=== PATIENT | male | born 1955 | race Caucasian/White ===

== ENCOUNTER 2019-05-21 15:30 | Inpatient (IN) | payer OTHER ==
[~2019-05-21] VITALS: Ht 170.2 cm; Wt 107.5 kg
[2019-05-21 15:43] VITALS: BP 131/62
--- NOTE | 2019-05-21 15:44 | NUR ---
PT TO ER BED 9
--- NOTE | 2019-05-21 15:53 | NUR ---
63 Y/O MALE PRESENTS WITH INNER THIGH PAIN/PELIVC AREA PAIN FOR WEEKS ASSOCIATED WITH LOWER BILAT EXTREMITY CELLULITIS. 5/10 PAIN. DENIES ANY RECENT ILLNESS. PT WAS BROUGHT IN BY [place] FROM [facility]. PT WAS AT [facility] AND STATES "SOMEONE CALLED 911, I DONT KNOW WHY". AAOX4. RESP EVEN AND UNLABORED. AUDIBLE WHEEZES HEARD. 2L NC SP02 98%. BOWEL SOUNDS NORMOACTIVE IN ALL QUADRANTS. SKIN COOL DRY, INTACT. CAP REFILL <3. PMH: COPD, ASTHMA, HTN NKA
[2019-05-21] MEDS ORDERED: NACL 0.9% 500 ML IV SCH (15:56)
--- NOTE | 2019-05-21 16:23 | NUR ---
XRAY AT BEDSIDE
[2019-05-21] MEDS ORDERED: TRAM50TA1 PO ×2 (16:41→16:43)
[2019-05-21] MEDS ORDERED: IBUP-1842 PO (16:42)
[2019-05-21 16:56] LABS: BASOPHILS % (AUTO) 0.5 % (0.0-2.0); EOSINOPHILS # (AUTO) 0.1 K/uL (0-0.4); EOSINOPHILS % (AUTO) 1.1 % (0.0-4.0); HEMATOCRIT 43.1 % (36-52); HEMOGLOBIN 13.9 g/dL (12.0-18.0); LYMPHOCYTES # (AUTO) 0.5 K/uL (2.0-11.5); LYMPHOCYTES % (AUTO) 6.9 % (20.5-51.1); MEAN CORPUSCULAR HEMOGLOBIN 28 pg (27-31); MEAN CORPUSCULAR HGB CONC 32 g/dL (33-37); MEAN CORPUSCULAR VOLUME 87.7 fL (80-94); MONOCYTES # (AUTO) 0.6 K/uL (0.8-1.0); MONOCYTES % (AUTO) 7.4 % (1.7-9.3); NEUTROPHILS # (AUTO) 6.5 K/uL (1.8-7.7); NEUTROPHILS % (AUTO) 84.1 % (42.2-75.2); PLATELET COUNT (AUTO) 129 K/uL (140-450); RED BLOOD CELL COUNT(AUTO) 4.91 MIL/uL (4.20-6.10); RED CELL DISTRIBUTION WIDTH 16.9 % (11.6-13.7); WHITE BLOOD COUNT (AUTO) 7.7 K/uL (4.8-10.8)
[2019-05-21 17:16] LABS: PROTHROMBIN TIME 11.1 secs (10.8-13.4)
[2019-05-21 17:18] LABS: ALBUMIN 3.4 g/dL (3.4-5.0); ANION GAP 11.4 (8-16); CARBON DIOXIDE 29.6 mmol/L (21-32); CREATININE 1.3 mg/dL (0.6-1.3)
--- NOTE | 2019-05-21 17:26 | NUR ---
ATTEMPTED TO STRAIGHT CATHETERIZE PATIENT IN ATTEMPTS TO OBTAIN URINE SAMPLE. PROCEDURE WAS UNSUCCESSFUL DUE TO PATIENT TENSING UP AND JOLTING IN PAIN. PT YELLED OUT TO STOP ADVANCEMENT OF CATHETER. CATHERIZATION WAS HALTED MID PROCEDURE AND CATH WAS WITHDRAWN. PT LEFT WITH URINAL AT BEDSIDE.
[2019-05-21] MEDS ORDERED: VANCOMYCIN 1,000 MG in DEXTROSE 5% 250 ML IV ONE (17:30)
[2019-05-21] MEDS ORDERED: ASPIRIN 81 MG TAB.CHEW PO ONE (17:35)
[2019-05-21] MEDS ORDERED: VANCOMYCIN 1,000 MG VIAL ONE (17:36)
[2019-05-21] MEDS ORDERED: MORPHINE SULFATE 2 MG/ML SYR IVP ONE (17:45)
[2019-05-21] MEDS ORDERED: VANCOMYCIN PER PHARMACY MC PRN (18:20)
[2019-05-21] MEDS ORDERED: HYDROcodone/APAP 5/325 MG 1 TAB TAB PO PRN (18:20)
[2019-05-21] MEDS ORDERED: traMADol 50 MG TAB PO PRN (18:20)
[2019-05-21] MEDS ORDERED: ACETAMINOPHEN 325 MG TAB PO PRN (18:20)
[2019-05-21] MEDS ORDERED: ALBUTEROL 0.083% 2.5 MG/3 ML NEBU INH PRN (18:20)
[2019-05-21] MEDS ORDERED: ONDANSETRON 4 MG/2 ML VIAL IVP PRN (18:20)
[2019-05-21] MEDS ORDERED: MORPHINE SULFATE 4 MG/ML SYR IVP PRN (18:20)
--- NOTE | 2019-05-21 18:21 | NUR ---
PT STILL WILL NOT GIVE URINE. PT REFUSING STRAIGHT CATH
--- NOTE | 2019-05-21 18:24 | NUR ---
RED AND DRY, SCALY SKIN FROM KNEES DOWN, NO OPEN WOUNDS IN THIS AREA
--- NOTE | 2019-05-21 18:24 | NUR ---
NO WOUNDS UPON VISUAL EXAMINATION
--- NOTE | 2019-05-21 18:49 | NUR ---
NADR, PT SLEEPING
[2019-05-21 19:00] VITALS: BP 126/86
--- NOTE | 2019-05-21 19:11 | NUR ---
[facility]. Admited to TELE. Will go to room 126B. Belongings list completed. Report to LETY RAMOS.
[2019-05-21] MEDS: NACL 0.9% 1,000 ML IV SCH (19:48)
--- NOTE | 2019-05-21 20:30 | NUR ---
PT SEEN AND ASSESS AT THIS TIME. BREATH SOUNDS EXP WHEEZING. HHN PRN ALBUTEROL TX GIVEN ORDERED, AND PT TOLERATED WELL WITH NO ADVERSE REACTION. CLEAR BREATH SOUNDS AFTER TX. AR DOCTOR SAID HE WILL GIVE NEW ORDER (XOPENEX AND ATROVENT) TO NURSE. FOUND PT ON 4L NC WIT SPO2 OF 99%. O2 TITRATED TO ROOM AIR WITH SPO2 OF 93-94%. RN AT BEDSIDE. WILL CONTINUE TO MONITOR PT.
--- NOTE | 2019-05-21 20:39 | NUR ---
CALLED DR. 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
--- NOTE | 2019-05-21 21:00 | NUR ---
PT SAID HE FEELS MUCH BETTER, RR- 20, NO SOB NOTED. CHECKED BY RT EARLIER LEFT W/ O2 SAT OF 93% AT 2LPM O2 VIA NASAL CANNULA.
[2019-05-21] MEDS ORDERED: LEVALBUTEROL 1.25 MG/0.5 ML NEBU INH PRN (23:10)
[2019-05-22] VITALS: BP 133/76
--- NOTE | 2019-05-22 | NUR ---
PT SLEEPING, WILL TAKE A PHOTP LATER; PT NO DISTRESS, NO PAIN COMPLAINTS AT THIS TIME
--- NOTE | 2019-05-22 01:02 | NUR ---
PHOTO TAKEN ON THE LOWER EXTREMITY, BILATERAL CELLULITIS. WOUND CLOSED
--- NOTE | 2019-05-22 03:51 | NUR ---
PT HAS DIFFICULTY OF ADL'S' SOB NOTED WHEN PT EXERTS EFFORT, WILL CONTINUE TO MONITOR
[2019-05-22 04:00] VITALS: BP 111/57
--- NOTE | 2019-05-22 05:30 | NUR ---
INFORMED LATTER-DAY THAT PT NEEDS A BREATHING TX
--- NOTE | 2019-05-22 07:15 | NUR ---
RT CAME TO GIVE BREATHING TX FOR WHEEZING
--- NOTE | 2019-05-22 07:19 | NUR ---
PT AWAKE ALERT ORIENTED X 4, BEDREST. PT NO RESPIRATORY DISTRESS NOTED; NO PAIN. ENDORSED TO AM SHIFT FOR CONTINUITY OF CARE,
--- NOTE | 2019-05-22 07:20 | NUR ---
RECEIVED REPORT FROM NIGHT NURSE FOR CONTINUITY OF CARE, PT IS STABLE, PT RECEIVING A BREATHING TREATMENT, RT IN THE ROOM WITH PT, PT ON 2L NC, PT HAS A RIGHT AC 20G INFUSING NS AT 75ML/H, INTRODUCE SELF, UPDATED WHITEBOARD, CALL LIGHT WITHIN REACH, ALL NEEDS MET AT THIS TIME.
[2019-05-22 07:21] LABS: BASOPHILS % (AUTO) 0.9 % (0.0-2.0); EOSINOPHILS # (AUTO) 0.3 K/uL (0-0.4); EOSINOPHILS % (AUTO) 6.1 % (0.0-4.0); HEMATOCRIT 40.2 % (36-52); HEMOGLOBIN 12.8 g/dL (12.0-18.0); LYMPHOCYTES # (AUTO) 0.7 K/uL (2.0-11.5); LYMPHOCYTES % (AUTO) 13.4 % (20.5-51.1); MEAN CORPUSCULAR HEMOGLOBIN 28 pg (27-31); MEAN CORPUSCULAR HGB CONC 32 g/dL (33-37); MEAN CORPUSCULAR VOLUME 88.5 fL (80-94); MONOCYTES # (AUTO) 0.6 K/uL (0.8-1.0); NEUTROPHILS # (AUTO) 3.6 K/uL (1.8-7.7); NEUTROPHILS % (AUTO) 67.6 % (42.2-75.2); PLATELET COUNT (AUTO) 116 K/uL (140-450); RED BLOOD CELL COUNT(AUTO) 4.54 MIL/uL (4.20-6.10); RED CELL DISTRIBUTION WIDTH 16.5 % (11.6-13.7); WHITE BLOOD COUNT (AUTO) 5.3 K/uL (4.8-10.8)
[2019-05-22] MEDS: IPRATROPIUM 0.02% 0.5 MG/2.5 ML NEBU INH PRN (07:21)
[2019-05-22 07:34] LABS: ANION GAP 11.9 (8-16); CARBON DIOXIDE 27.3 mmol/L (21-32); POTASSIUM 4.2 mmol/L (3.5-5.1)
[2019-05-22] MEDS: NACL 0.9% 1,000 ML IV SCH ×2 (07:38→20:59)
[2019-05-22 08:00] VITALS: BP 114/78
[2019-05-22] MEDS: ASPIRIN 81 MG TAB.CHEW PO SCH (08:16)
--- NOTE | 2019-05-22 08:21 | NUR ---
ADMINISTERED ORDERED MEDICATION, GAVE TYLENOL FOR TEMPERATURE OF 100.0, PT EDUCATION GIVEN, PT VERBALIZED UNDERSTANDING, PT IS STABLE, CALL LIGHT WITHIN REACH.
[2019-05-22 08:36] LABS: MAGNESIUM 1.8 mg/dL (1.8-2.4); PHOSPHORUS 3.4 mg/dL (2.5-4.9)
--- NOTE | 2019-05-22 08:38 | NUR ---
PATIENT HAS BEEN SCREENED AND CATEGORIZED MODERATE NUTRITION RISK. PATIENT WILL BE SEEN WITHIN 3-5 DAYS OF ADMISSION. 05/24/19 05/26/[address]
--- NOTE | 2019-05-22 09:25 | NUR ---
CALLED DR CARREON AT [facility] AND LEFT A CALL BACK MESSAGE. DR MOSER CALLED BACK OF 09, GAVE CRITICAL VALUE OF TROPONIN 0.777, AND PREVIOUS TROPONIN 0.060, DR MOSER SAID WE WILL CONTINUE TO MONITOR PATIENT AND NO ORDERED RECEIVED AT THE MOMENT.
[2019-05-22] MEDS: VANCOMYCIN 1,000 MG in DEXTROSE 5% 250 ML IV SCH ×2 (10:39→22:44)
--- NOTE | 2019-05-22 10:40 | NUR ---
ADMINISTERED ORDERED MEDICATION, EDUCATION GIVEN, PT VERBALIZED UNDERSTANDING, PT STABLE, CALL LIGHT WITHIN REACH.
--- NOTE | 2019-05-22 11:11 | NUR ---
PT ASLEEP IN BED, PT SNORING, PT IS STABLE, NO SIGNS OF DISTRESS NOTED, RESPIRATIONS ARE EVEN AND UNLABORED ON 2L NC O2, CALL LIGHT WITHIN REACH.
[2019-05-22 12:00] VITALS: BP 92/62
[2019-05-22] MEDS ORDERED: LEVALBUTEROL 1.25 MG/0.5 ML NEBU INH SCH (12:25)
[2019-05-22] MEDS: IPRATROPIUM 0.02% 0.5 MG/2.5 ML NEBU INH SCH ×2 (12:57→20:10)
[2019-05-22] MEDS: LEVALBUTEROL 1.25 MG/0.5 ML NEBU INH SCH ×2 (12:58→20:10)
[2019-05-22] MEDS ORDERED: BUDESONIDE 0.5 MG/2 ML NEBU INH SCH (13:00)
--- NOTE | 2019-05-22 13:50 | NUR ---
PT RESTING IN BED, NO SIGN OF DISTRESS NOTED, CALL LIGHT WITHIN REACH.
--- NOTE | 2019-05-22 14:40 | NUR ---
DR MOSER CALLED BACK REGARDING PT ELEVATED TROPONIN OF 1.021 TRENDING UP, DR ORDERED EKG AND TROPONIN CHECK IN THE AM. WILL INPUT THE ORDER AND HAVE IT CARRIED OUT.
--- NOTE | 2019-05-22 15:35 | NUR ---
PT ASLEEP IN BED, PT IS STABLE, NO SIGNS OF DISTRESS NOTED, RESPIRATIONS ARE EVEN AND UNLABORED ON 2L O2 NASAL CANNULA, CALL LIGHT WITHIN REACH.
[2019-05-22 16:00] VITALS: BP 104/72
[2019-05-22] MEDS ORDERED: HEPARIN PER PHARMACY MC PRN (16:45)
[2019-05-22] MEDS ORDERED: hePARIN / DEXT 5% PREMIX 250 ML IV SCH (16:45)
[2019-05-22] MEDS ORDERED: DILTIAZEM 25 MG/5 ML VIAL IVP SCH (16:50)
[2019-05-22] MEDS ORDERED: DILTIAZEM 25 MG/5 ML VIAL IVP ONE (16:56)
--- NOTE | 2019-05-22 17:13 | NUR ---
CARDIZEM 10MG/2ML GIVEN PER Margarette VERNON. Addendum: 05/22/19 at 1755 by Sara Pena RN IV PUSH
[2019-05-22] MEDS ORDERED: VANCOMYCIN HCL 1,250 MG in NACL 0.9% 250 ML IV SCH (18:00)
--- NOTE | 2019-05-22 18:10 | NUR ---
CALLED DR. Margarette PAUL AND GAVE RE-ASSESSED PT BP:113/77, HR86, AFTER CARDIZEM. DR. PAUL ORDERED CARDIZEM 30MG, PO,Q8H HOLD HR< 70, OR SYSTOLIC < 100. DR. PAUL WANTS PT ON HEPARIN DRIP, TROPONIN AND EKG IN THE AM.
--- NOTE | 2019-05-22 19:10 | NUR ---
GAVE REPORT TO NIGHT NURSE FOR CONTINUITY OF CARE, PT IS STABLE.
--- NOTE | 2019-05-22 19:15 | NUR ---
RECEIVED PT IN STABLE CONDITION FROM AM NURSE. AWAKE,ALERT AND ORIENTED X4. ON TELE MONITOR -A FLUTTER. WITH IVF INFUSING WELL ON THE RT AC G#20. CLEAR AND PATENT. BLE WITH CELLULITIS. 1+ NON PITTING EDEMA. PLAN OF CARE DISCUSSED WITH PT. VERBALIZED UNDERSTANDING. FREQ ROUNDS NEEDED. SIDE RAILS UP X2. BED ON LOW POSITION. CALL LIGHT AND URINAL WITHIN EASY REACH. WILL CONTINUE TO MONITOR.
[2019-05-22 20:01] VITALS: BP 123/74
[2019-05-22] MEDS: BUDESONIDE 0.5 MG/2 ML NEBU INH SCH (20:11)
--- NOTE | 2019-05-22 20:17 | NUR ---
RECEIVED REPORT FROM AM SHIFT. PATIENT APPEARS TO BE IN NO APPARENT RESPIRATORY DISTRESS AT THIS TIME: RR 18, HR 70, AND SPO2 92% ON 1L NASAL CANNULA. UPPER LOBES BREATH SOUNDS: WHEEZING BILATERALLY. LOWER BASES BREATH SOUNDS: WHEEZING BILATERALLY. HHN TX GIVEN ORDERED AND PATIENT TOLERATED WELL WITH NO ADVERSE REACTION. PT WAS ALSO INFORMED TO CALL RN OR COMPOSING MACHINE OPERATOR WHEN EXPERIENCING SOB FOR PRN TX. WILL CONTINUE TO MONITOR PT.
--- NOTE | 2019-05-22 20:47 | NUR ---
TROPONIN ELEVATED AND EKG ABNORMAL. HEPARIN DRIP STARTED AFTER THE INITIAL BOLUS GIVEN IVP WITNESSED BY RACHEL CHAVARRIA CHARGE. PTT ORDERED AT 0247 AM.
[2019-05-22] MEDS: hePARIN / DEXT 5% PREMIX 250 ML IV SCH (20:49)
[2019-05-22] MEDS: DILTIAZEM 30 MG TAB PO SCH (21:03)
--- NOTE | 2019-05-22 22:30 | NUR ---
MADE ROUNDS. PT ASLEEP. NO S/S OF ANY DISTRESS NOR DISCOMFORT NOTED.
[2019-05-23] VITALS: BP 136/46
[2019-05-23] MEDS: NACL 0.9% 1,000 ML IV SCH (00:28)
--- NOTE | 2019-05-23 00:30 | NUR ---
PT IS ASLEEP. NO S/S OF ANY PAIN NOR DISCOMFORT NOTED.
[2019-05-23] MEDS: IPRATROPIUM 0.02% 0.5 MG/2.5 ML NEBU INH SCH ×4 (00:56→19:20)
[2019-05-23] MEDS: LEVALBUTEROL 1.25 MG/0.5 ML NEBU INH SCH ×4 (00:56→19:20)
--- NOTE | 2019-05-23 02:46 | NUR ---
BLOOD WAS DRAWN FOR PTT. WILL FOLLOW UP RESULT.
[2019-05-23 04:16] VITALS: BP 131/69
[2019-05-23] MEDS: hePARIN / DEXT 5% PREMIX 250 ML IV SCH ×4 (04:45→18:50)
--- NOTE | 2019-05-23 04:45 | NUR ---
OBTAINED RESULTS FOR PTT: 27.3 MADE CHANGES PER HEPARIN DRIP PROTOCOL. ADMINISTERED BOLUS 4000UNITS AND INCREASED DRIP BY 270UNITS = TOTAL UNITS 1070 OR 10.7ML/HR. PT TOLERATED WELL. SAFETY MEASURES IN PLACE. BED IN LOW POSITION CALL LIGHT WITHIN REACH WILL CONTINUE TO MONITOR
[2019-05-23] MEDS: DILTIAZEM 30 MG TAB PO SCH ×3 (04:54→20:45)
[2019-05-23 06:05] LABS: BASOPHILS % (AUTO) 0.7 % (0.0-2.0); EOSINOPHILS # (AUTO) 0.2 K/uL (0-0.4); EOSINOPHILS % (AUTO) 4.9 % (0.0-4.0); HEMATOCRIT 39.6 % (36-52); HEMOGLOBIN 12.8 g/dL (12.0-18.0); LYMPHOCYTES # (AUTO) 0.7 K/uL (2.0-11.5); MEAN CORPUSCULAR HEMOGLOBIN 29 pg (27-31); MEAN CORPUSCULAR HGB CONC 32 g/dL (33-37); MEAN CORPUSCULAR VOLUME 88.6 fL (80-94); MONOCYTES # (AUTO) 0.5 K/uL (0.8-1.0); MONOCYTES % (AUTO) 10.2 % (1.7-9.3); NEUTROPHILS # (AUTO) 3.5 K/uL (1.8-7.7); NEUTROPHILS % (AUTO) 70.2 % (42.2-75.2); PLATELET COUNT (AUTO) 99 K/uL (140-450); RED BLOOD CELL COUNT(AUTO) 4.46 MIL/uL (4.20-6.10); RED CELL DISTRIBUTION WIDTH 16.6 % (11.6-13.7)
[2019-05-23 06:26] LABS: ANION GAP 10.1 (8-16); CREATININE 1.1 mg/dL (0.6-1.3); POTASSIUM 4.1 mmol/L (3.5-5.1)
[2019-05-23 06:38] LABS: MAGNESIUM 1.8 mg/dL (1.8-2.4); PHOSPHORUS 2.7 mg/dL (2.5-4.9)
--- NOTE | 2019-05-23 07:14 | NUR ---
RECEIVED REPORT FROM NIGHT NURSE, PT IS STABLE, INTRODUCE SELF, PT HAS RAC 20G INFUSING HEPARIN DRIP AT 10.7ML/H, RH 22G INFUSING NS AT 75 ML/H, PT ON 2L PR 02, UPDATED WHITE BOARD, SAFETY MEASURES IN PLACE, CALL LIGHT WITHIN REACH.
--- NOTE | 2019-05-23 07:15 | NUR ---
ENDORSED PATIENT TO DAYSHIFT NURSE FOR CONTINUITY OF CARE. PT IN STABLE CONDITION.
[2019-05-23] MEDS: BUDESONIDE 0.5 MG/2 ML NEBU INH SCH ×2 (07:18→19:20)
[2019-05-23 08:00] VITALS: BP 96/66
[2019-05-23] MEDS: ASPIRIN 81 MG TAB.CHEW PO SCH (08:20)
--- NOTE | 2019-05-23 08:27 | NUR ---
ADMINISTERED ORDERED MEDICATION, PT EDUCTION GIVEN, PT VERBALIZED UNDERSTANDING, PT IS STABLE, CALL LIGHT WITHIN REACH.
--- NOTE | 2019-05-23 08:55 | NUR ---
DISCHARGE PLANNING: THIS IS A 63 Y/O MALE PATIENT FROM HOME, WHO CAME IN DUE TO LOWER EXTREMITY PAIN AND SWELLING. PAST MEDICAL HISTORY INCLUDE COPD AND HTN. INITIAL DIAGNOSIS OF CELLULITIS LLE AND ABNORMAL EKG. CURRENT LABS INCLUDE WBC 5.0, H/H 12.8/39.6, NA/K 144/4.1, BUN/CREA 20/1.1, TORP 0.545. ON HEPARIN DRIP. ON ROCEPHIN, VANCO AND BREATHING TREATMENT. CARDIO CONSULT IN PLACE. DC PLAN BACK TO HOME ONCE STABLE. Addendum: 05/24/19 at 1602 by Sarah Mohan CM DC PLANNING: SEEN BY DR HERNANDEZ WHEEZING ON EXAM SOB NOTED , O2 2L/NC .ORDERED IV LASIX X1, SOLU MEDROL VANCOMYCIN IV AND BREATHING TREATMENT. SEEN BY DR HUMBERTO Causey WOOD LATHER CONTINUE HEPARIN DRIP, TROPONIN TRENDING DOWN. PT IS HOMELESS, NOTIFIED [facility] SPOKE WITH DHAVAL FUNEZ IF PT AGREES TO GO TO SNF FOR PT AND TO CONTINUE IV ABX. CM TO FOLLOW Addendum: 05/25/19 at 1117 by Verenice Sheppard CM ON BREATHING TREATMENT. WAS GIVEN LASIX IV ONCE. STILL ON ROCEPHIN, VANCOMYCIN AND SOLU MEDROL. STILL ON HEPARIN DRIP, TROPS DOWN TRENDING 0.401 FROM 0545 YESTERDAY AND PTT 40.6. CARDIO CONSULT IN PLACE. DC PLAN PENDING ON PATIENT'S RESPONSE TO TREATMENT.
[2019-05-23] MEDS: VANCOMYCIN 1,250 MG in DEXTROSE 5% 250 ML IV SCH ×2 (10:37→21:06)
--- NOTE | 2019-05-23 10:37 | NUR ---
ADMINISTERED ORDERED MEDICATION, PT EDUCATION GIVEN, PT VERBALIZED UNDERSTANDING, PT IS STABLE, CALL LIGHT WITHIN REACH
--- NOTE | 2019-05-23 11:14 | NUR ---
PT IN ROOM HAVING AN ECHO DONE, PT IS STABLE, CALL LIGHT WITHIN REACH.
[2019-05-23 12:00] VITALS: BP 136/72
--- NOTE | 2019-05-23 13:55 | NUR ---
ADMINISTERED ORDERED MEDICATION, EDUCATION GIVEN, PT VERBALIZED UNDERSTANDING, PT UPSET AND REQUESTING ANXIETY MEDICATION TO CALM DOWN, WILL CALL MD FOR AN ORDER, PT IS STABLE, CALL LIGHT WITHIN REACH.
--- NOTE | 2019-05-23 14:09 | NUR ---
PT AGITATED AND REQUEST MEDICATION FOR ANXIETY, CALLED DR ADITI HERNANDEZ AND RECEIVED TORB FOR ATIVAN FOR ANXIETY, ATIVAN 0.50MG, PO Q6H PRN, WILL INPUT ORDERED AND ADMINISTERED
[2019-05-23] MEDS: LORazepam 0.5 MG TAB PO PRN ×2 (14:19→20:45)
--- NOTE | 2019-05-23 14:20 | NUR ---
ADMINISTERED ATIVAN FOR ANXIETY, EDUCATION GIVEN, PT VERBALIZED UNDERSTANDING, PT IS STABLE, CALL LIGHT WITHIN REACH.
--- NOTE | 2019-05-23 15:38 | NUR ---
PT ASLEEP IN HIS ROOM, PT IS STABLE, NO SIGNS OF DISTRESS NOTED, CALL LIGHT WITHIN REACH.
[2019-05-23 16:00] VITALS: BP 105/58
--- NOTE | 2019-05-23 19:14 | NUR ---
GAVE REPORT TO NIGHT NURSE FOR CONTINUITY OF CARE, PT IS STABLE.
--- NOTE | 2019-05-23 19:15 | NUR ---
RECEIVED PATIENT IN STABLE CONDITION FROM AM SHIFT NURSE FOR CONTINUITY OF CARE. RESPIRATIONS EVEN, UNLABORED. IV SITE NOTED TO LEFT AC 20G, INFUSING HEPARIN. SALINE LOCK TO LEFT HAND 22G PATENT/INTACT. NO C/O PAIN. NO S/SX ACUTE DISTRESS. CALL LIGHT WITHIN REACH. WILL CONTINUE TO MONITOR.
[2019-05-23 19:20] LABS: APPEARANCE,URINE CLEAR (CLEAR); BILIRUBIN,URINE NEGATIVE (NEGATIVE); BLOOD, URINE NEGATIVE (NEGATIVE); COLOR,URINE YELLOW (YELLOW); LEUKOCYTE ESTERASE ,URINE NEGATIVE (NEGATIVE); NITRITE, URINE NEGATIVE (NEGATIVE); PH,URINE 6.5 (5.0-9.0); UGLUCOSE NEGATIVE (NEGATIVE)
--- NOTE | 2019-05-23 19:30 | NUR ---
RECEIVED REPORT FROM AM SHIFT. PATIENT APPEARS TO BE IN NO APPARENT RESPIRATORY DISTRESS AT THIS TIME: RR 20, HR 118, AND SPO2 94% ON ROOM AIR. PT REFUSED HHN TX STATED HE WANT TO BE LEFT ALONE. INDICATION FOR HHN WAS EXPLAINED TO PATIENT. PT WAS ALSO INFORMED TO CALL RN OR HOSPICE PHYSICIAN WHEN EXPERIENCING SOB FOR PRN TX. WILL CONTINUE TO MONITOR PT.
[2019-05-23 20:00] VITALS: BP 121/81
[2019-05-23] MEDS: ATORVASTATIN 20 MG TAB PO SCH (20:45)
--- NOTE | 2019-05-23 20:45 | NUR ---
PATIENT C/O ANXIETY. MEDICATED ORDERED. CALL LIGHT WITHIN REACH. WILL CONTINUE TO MONITOR.
--- NOTE | 2019-05-23 21:00 | NUR ---
PATIENT ASLEEP AND IN STABLE CONDITION. NO C/O PAIN. NO S/SX ACUTE DISTRESS. CALL LIGHT WITHIN REACH. WILL CONTINUE TO MONITOR.
--- NOTE | 2019-05-23 21:45 | NUR ---
REASSESSED ANXIETY LEVEL, PATIENT STILL ASLEEP AND IN STABLE CONDITION. CALL LIGHT WITHIN REACH. WILL CONTINUE TO MONITOR.
--- NOTE | 2019-05-23 23:05 | NUR ---
PATIENT ASLEEP AND IN STABLE CONDITION. NO C/O PAIN. NO S/SX ACUTE DISTRESS. CALL LIGHT WITHIN REACH. WILL CONTINUE TO MONITOR.
[2019-05-24] VITALS: BP 124/82
[2019-05-24] MEDS: IPRATROPIUM 0.02% 0.5 MG/2.5 ML NEBU INH SCH ×4 (00:20→20:32)
[2019-05-24] MEDS: LEVALBUTEROL 1.25 MG/0.5 ML NEBU INH SCH ×4 (00:20→20:33)
[2019-05-24] MEDS: hePARIN / DEXT 5% PREMIX 250 ML IV SCH ×3 (02:00→23:18)
[2019-05-24] MEDS: IPRATROPIUM 0.02% 0.5 MG/2.5 ML NEBU INH PRN (02:21)
--- NOTE | 2019-05-24 02:27 | NUR ---
RECEIVED A CALL FOR SOB. MINE ENGINEERING SUPERINTENDENT AT BEDSIDE, PATIENT CONFIRMED SOB AND AUSCULTATION SHOWS BILATERAL WHEEZING BREATH SOUNDS. PRN HHN TX INDICATED AT THIS TIME. TX WAS GIVEN ORDERED AND PT TOLERATED TX WELL WITH NO ADVERSE REACTION. WILL CONTINUE TO MONITOR.
--- NOTE | 2019-05-24 02:40 | NUR ---
PATIENT RECEIVED BREATHING TREATMENT AND CURRENTLY ASLEEP. IN STABLE CONDITION. CALL LIGHT WITHIN REACH. WILL CONTINUE TO MONITOR.
[2019-05-24] MEDS: LORazepam 0.5 MG TAB PO PRN ×3 (03:11→20:11)
--- NOTE | 2019-05-24 03:11 | NUR ---
PATIENT C/O ANXIETY. MEDICATED ORDERED. CALL LIGHT WITHIN REACH. WILL CONTINUE TO MONITOR.
[2019-05-24 04:00] VITALS: BP 122/66
--- NOTE | 2019-05-24 04:11 | NUR ---
PATIENT RESTING COMFORTABLY IN BED. NO C/O PAIN. NO VERBALIZATION OF ANXIETY. NO S/SX ACUTE DISTRESS. CALL LIGHT WITHIN REACH. WILL CONTINUE TO MONITOR.
[2019-05-24] MEDS: DILTIAZEM 30 MG TAB PO SCH ×3 (05:00→20:10)
--- NOTE | 2019-05-24 06:01 | NUR ---
PATIENT CONTINUES IN STABLE CONDITION. NO C/O PAIN. NO S/SX ACUTE DISTRESS. CALL LIGHT WITHIN REACH. WILL CONTINUE TO MONITOR.
[2019-05-24] MEDS: BUDESONIDE 0.5 MG/2 ML NEBU INH SCH ×2 (06:45→20:33)
--- NOTE | 2019-05-24 07:27 | NUR ---
ENDORSED PATIENT IN STABLE CONDITION TO AM SHIFT NURSE FOR CONTINUITY OF CARE.
--- NOTE | 2019-05-24 07:31 | NUR ---
RECEIVED REPORT FROM SCROLL MACHINE OPERATOR RN FOR CONTINUITY OF CARE. PT IS AAOX4, COOPERATIVE BUT BECOMES AGITATED EASILY. PT ON 2L O2 VIA NC. SATING 95%. PT HAS BLE CELLULITIS. OPEN TO AIR. PT ON CARDIAC DIET. URINAL AT BEDSIDE FOR VOIDING. PT ABLE TO AMBULATE BUT WITH ASSISTANCE DUE TO SWELLING IN BLE. DISCUSSED POC WITH PT NAD PT VERBALIZED UNDERSTANDING. SAFETY MEASURES IN PLACE. BOARD UPDATED. BED ALARM ON, CALL LIGHT WITHIN REACH, BED IN LOW POSITION. WILL ROUND FREQUENTLY THROUGHOUT THE SHIFT.
[2019-05-24 08:00] VITALS: BP 110/82
[2019-05-24 08:31] LABS: BASOPHILS # (AUTO) 0.1 K/uL (0.00-0.22); BASOPHILS % (AUTO) 1.1 % (0.0-2.0); EOSINOPHILS # (AUTO) 0.2 K/uL (0-0.4); EOSINOPHILS % (AUTO) 4.6 % (0.0-4.0); HEMATOCRIT 40.5 % (36-52); LYMPHOCYTES # (AUTO) 0.8 K/uL (2.0-11.5); LYMPHOCYTES % (AUTO) 14.8 % (20.5-51.1); MEAN CORPUSCULAR HEMOGLOBIN 28 pg (27-31); MEAN CORPUSCULAR HGB CONC 32 g/dL (33-37); MEAN CORPUSCULAR VOLUME 87.3 fL (80-94); MONOCYTES # (AUTO) 0.5 K/uL (0.8-1.0); MONOCYTES % (AUTO) 10.6 % (1.7-9.3); NEUTROPHILS # (AUTO) 3.5 K/uL (1.8-7.7); NEUTROPHILS % (AUTO) 68.9 % (42.2-75.2); PLATELET COUNT (AUTO) 102 K/uL (140-450); RED BLOOD CELL COUNT(AUTO) 4.64 MIL/uL (4.20-6.10); RED CELL DISTRIBUTION WIDTH 15.8 % (11.6-13.7); WHITE BLOOD COUNT (AUTO) 5.1 K/uL (4.8-10.8)
[2019-05-24 08:38] LABS: CARBON DIOXIDE 29.9 mmol/L (21-32); CREATININE 0.9 mg/dL (0.6-1.3); POTASSIUM 3.9 mmol/L (3.5-5.1)
[2019-05-24 08:44] LABS: MAGNESIUM 1.6 mg/dL (1.8-2.4); PHOSPHORUS 2.7 mg/dL (2.5-4.9)
--- NOTE | 2019-05-24 09:41 | NUR ---
ADMINISTERED MORNING MEDS TO PT. PT TOLERATED WELL. ALL NEEDS MET.
[2019-05-24] MEDS: METOPROLOL SUCCINATE 50 MG TABER PO SCH (09:57)
[2019-05-24] MEDS: ASPIRIN 81 MG TAB.CHEW PO SCH (09:57)
[2019-05-24] MEDS: VANCOMYCIN 1,250 MG in DEXTROSE 5% 250 ML IV SCH ×2 (10:00→21:01)
--- NOTE | 2019-05-24 11:18 | NUR ---
PT RESTING IN BED WATCHING TV. ALL NEEDS MET. WILL CONTINUE TO ROUND ON PT.
--- NOTE | 2019-05-24 11:38 | NUR ---
REMINDED OF PT A-FLUTTER. ASKED MD IF HE WANTED TO MAKE ANY CHANGES TO MEDS OR ADD ANY ORDERS. PER HE SAID HE WOULD TAKE A LOOK. WILL FOLLOW MD ORDERS.
[2019-05-24 12:00] VITALS: BP 122/69
[2019-05-24] MEDS ORDERED: FUROSEMIDE 20 MG/2 ML VIAL IVP SCH (12:15)
[2019-05-24] MEDS ORDERED: MAG SULF 2000 MG/WATER PREMIX 50 ML IV SCH (12:30)
[2019-05-24] MEDS: methylPREDNISolone SS 40 MG/ML VIAL IVP SCH ×2 (12:54→20:12)
--- NOTE | 2019-05-24 13:26 | NUR ---
PT ASLEEP IN BED. ALL NEEDS MET.
--- NOTE | 2019-05-24 13:49 | NUR ---
DILTIAZEM GIVEN. PT HR IS 86. BP IS 125/74.
--- NOTE | 2019-05-24 15:17 | NUR ---
PT HAVING A SNACK IN BED. ALL NEEDS MET.
--- NOTE | 2019-05-24 15:40 | NUR ---
Hydro Generation Manager Note: Basic Screen: Yes High Risk DC Screen [place]: JAQUELIN Pierce Relationship: FRIEND Pre-Admission Living Arrangements: Other Prior ADL Independent Current Home Health Name/Tel: N/A Current DME/02 Name/Tel: N/A Current Hospice Name/Tel: N/A Current Dialysis Name/Tel: N/A Healthcare Decision Maker: Patient Advance Directive No Physician Orders for Life Sustaining Treatment Form No Patient/Family Have Educational Needs No Information Taught: Community Resources Person Taught: Patient Teaching Tools: Verbal Factors Affecting Learning: None Participation Level: Refused Evaluation: Verbalizes Understanding Needs Additional Education: No Discipline: Case Mgt/Social Svcs Tentative Discharge Plan/Destination: No Needs Identified Will require assistance post discharge: No Referred to Appellate Court Judge: No Tentative Discharge Plan Summary: Patient is a 63-year-old male admitted for cellulitis. Patient has PMHX of asthma, COPD, and hypertension. Patient reports being homeless. SW met with patient at bedside to verify demographics. Patient stated that he has been living on the streets by choice for a couple of years. Patient reports no mental heatlh history but reports daily methamphetamine use. SW provided patient substance abuse resources but refused homeless resouces. Tentative discharge plan is for patient to coordinate living arrangements. No further needs identified. Signature: SAMY Ramos Date: May 24, 2019 Time: 15:40
[2019-05-24 16:00] VITALS: BP 118/93
--- NOTE | 2019-05-24 17:49 | NUR ---
PT EATING DINNER IN BED. ALL NEEDS MET. WILL CONTINUE TO ROUND FREQUENTLY ON PT.
--- NOTE | 2019-05-24 19:25 | NUR ---
ENDORSED PT TO ENTRY LEVEL TRUCK DRIVER FOR CONTINUITY OF CARE. PT IN STABLE CONDITION AT THIS TIME.
--- NOTE | 2019-05-24 19:26 | NUR ---
RECEIVED PATIENT FROM AM SHIFT NURSE IN STABLE CONDITION FOR CONTINUITY OF CARE. RESPIRATIONS EVEN, UNLABORED. CONTINUES ON O2 2L VIA NC. O2SAT 95%. IV SITE RIGHT AC 20G PATENT/INTACT, INFUSING HEPARIN WELL. SALINE LOCK TO LEFT HAND 22G PATENT/INTACT. NO C/O PAIN. NO S/SX ACUTE DISTRESS. CALL LIGHT WITHIN REACH. WILL CONTINUE TO MONITOR.
[2019-05-24 20:00] VITALS: BP 111/67
[2019-05-24] MEDS: ATORVASTATIN 20 MG TAB PO SCH (20:10)
--- NOTE | 2019-05-24 20:38 | NUR ---
RECEIVED REPORT FROM AM SHIFT. PATIENT APPEARS TO BE IN NO APPARENT RESPIRATORY DISTRESS AT THIS TIME: RR 18, HR 90, AND SPO2 96% ON ROOM AIR. UPPER LOBES: WHEEZING BILATERAL BREATH SOUNDS LOWER BASES: WHEEZING BILATERAL BREATH SOUNDS HHN TX WAS GIVEN ORDERED AND PT TOLERATED TX WELL WITH NO ADVERSE REACTION. PT WAS ALSO INFORMED TO CALL RN OR DOOR FRAME BUILDER WHEN EXPERIENCING SOB FOR PRN TX. WILL CONTINUE TO MONITOR PT.
--- NOTE | 2019-05-24 21:51 | NUR ---
SPOKE WITH DR. HONG, RN OSTOMY MD, REGARDING ATRIAL FLUTTER STRETCH OF 3.5 SEC; MD SAID TO CONTINUE TO MONITOR. PATIENT IS ASLEEP AND COMFORTABLE WITH NO S/SX ACUTE DISTRESS. CALL LIGHT WITHIN REACH. WILL CONTINUE TO MONITOR.
--- NOTE | 2019-05-24 23:43 | NUR ---
PATIENT IS ASLEEP AND IN STABLE CONDITION. NO C/O PAIN. NO S/SX ACUTE DISTRESS. CALL LIGHT WITHIN REACH. WILL CONTINUE TO MONITOR.
[2019-05-25] VITALS: BP 104/71
[2019-05-25] MEDS: LEVALBUTEROL 1.25 MG/0.5 ML NEBU INH SCH ×3 (00:31→13:30)
[2019-05-25] MEDS: IPRATROPIUM 0.02% 0.5 MG/2.5 ML NEBU INH SCH ×3 (00:31→13:30)
--- NOTE | 2019-05-25 01:33 | NUR ---
MADE ROUNDS. PATIENT IS ASLEEP AND IN STABLE CONDITION. NO C/O PAIN. NO S/SX ACUTE DISTRESS. CALL LIGHT WITHIN REACH. WILL CONTINUE TO MONITOR.
--- NOTE | 2019-05-25 01:50 | NUR ---
SPOKE WITH Marium PEREZ REGARDING INCONSISTENT STRETCHING FLUTTERS 3.6 SECS WITH ORDER TO HOLD CARDIZEM 30MG IN THE MORNING AND CONTINUE TO MONITOR PATIENT. ORDERS NOTED AND CARRIED OUT. DR. PAUL WILL SEE THE PATIENT IN THE MORNING. WILL ENDORSE TO AM SHIFT TO FOLLOW UP. PATIENT IS CURRENTLY ASLEEP AND IN STABLE CONDITION. NO S/SX ACUTE DISTRESS. WILL CONTINUE TO MONITOR.
--- NOTE | 2019-05-25 03:02 | NUR ---
PATIENT IS ASLEEP AND IN STABLE CONDITION. NO C/O PAIN. NO S/SX ACUTE DISTRESS. CALL LIGHT WITHIN REACH. WILL CONTINUE TO MONITOR.
[2019-05-25 04:00] VITALS: BP 108/57
[2019-05-25] MEDS: DILTIAZEM 30 MG TAB PO SCH ×2 (04:26→13:00)
--- NOTE | 2019-05-25 05:18 | NUR ---
MADE ROUNDS. PATIENT IS ASLEEP AND IN STABLE CONDITION. NO C/O PAIN. NO S/SX ACUTE DISTRESS. CALL LIGHT WITHIN REACH. WILL CONTINUE TO MONITOR.
[2019-05-25 05:57] LABS: HEMATOCRIT 42.4 % (36-52); HEMOGLOBIN 13.7 g/dL (12.0-18.0); MEAN CORPUSCULAR HEMOGLOBIN 28 pg (27-31); MEAN CORPUSCULAR HGB CONC 32 g/dL (33-37); MEAN CORPUSCULAR VOLUME 87.4 fL (80-94); PLATELET COUNT (AUTO) 123 K/uL (140-450); RED BLOOD CELL COUNT(AUTO) 4.85 MIL/uL (4.20-6.10); WHITE BLOOD COUNT (AUTO) 6.6 K/uL (4.8-10.8)
[2019-05-25 06:31] LABS: ANION GAP 10.2 (8-16); CREATININE 0.9 mg/dL (0.6-1.3); MAGNESIUM 2.1 mg/dL (1.8-2.4); PHOSPHORUS 3.5 mg/dL (2.5-4.9); POTASSIUM 4.2 mmol/L (3.5-5.1)
--- NOTE | 2019-05-25 07:17 | NUR ---
ENDORSED PATIENT IN STABLE CONDITION TO AM SHIFT NURSE FOR CONTINUITY OF CARE.
--- NOTE | 2019-05-25 07:50 | NUR ---
RECEIVED REPORT FROM NIGHT NURSE .PT IS IN STABLE CONDITION, NO DISTRESS NOTED AND DENIES PAIN. AAOX4,RESPIRATION EVEN AND UNLABORED ON O2 2L NC. SKIN INTACT. IV SITES IN PLACE, INTACT AND PATENT. SAFETY MEASURES IN PLACE AND CALL LIGHT WITHIN REACH.REVIEWED AND WILL CONTINUE CURRENT CARE PLAN.
[2019-05-25 08:00] VITALS: BP 108/59
[2019-05-25] MEDS: BUDESONIDE 0.5 MG/2 ML NEBU INH SCH (08:01)
[2019-05-25 08:28] LABS: LYMPHOCYTES % (MANUAL) 8 % (20-46)
[2019-05-25 08:29] LABS: MONOCYTES % (MANUAL) 6 % (5-12)
[2019-05-25] MEDS: ASPIRIN 81 MG TAB.CHEW PO SCH (09:12)
[2019-05-25] MEDS: methylPREDNISolone SS 40 MG/ML VIAL IVP SCH (09:13)
[2019-05-25] MEDS: METOPROLOL SUCCINATE 50 MG TABER PO SCH (09:17)
--- NOTE | 2019-05-25 09:32 | NUR ---
MEDICATIONS DUE GIVEN AND CHECK VITAL SIGNS PRIOR TO GIVING MEDICATIONS. BP:108/59, IL:89,RR; 18, T;98.1 SPO2;95. SAFETY MEASURES IN PLACE AND CALL LIGHT WITHIN REACH. WILL CONTINUE TO MONITOR.
--- NOTE | 2019-05-25 10:26 | NUR ---
RECEIVED CRITICAL FOR VANCOMYCIN TROUGH, REPORTED TO PHARMACY AND KARON WAS AWARE. PER KARON, IT'S OK TO ADMINISTER AM DOSE.
[2019-05-25] MEDS: VANCOMYCIN 1,250 MG in DEXTROSE 5% 250 ML IV SCH (10:37)
--- NOTE | 2019-05-25 10:37 | NUR ---
ADMINISTERED VANCOMYCIN VIA IVPB PER MD ORDER, MED EDUCATION PROVIDED AND PT SAID OK. PT IS RESTING ON BED. DENIED SOB, PAIN AND DIZZINESS. NO SIGNS OF DISTRESS NOTED. TELE MONITOR ATTACHED. SAFETY MEASURES IN PLACE. BED ALARM ACTIVATED. INSTRUCTED PT TO USE THE CALL LIGHT FOR ANY ASSISTANCE AND PT AWARE.
--- NOTE | 2019-05-25 11:40 | NUR ---
PT IS RESTING ON BED. DENIED PAIN, SOB AND DIZZINESS. NO SIGNS OF DISTRESS NOTED. TELE MONITOR ATTACHED. SAFETY MEASURES IN PLACE. BED ALARM ACTIVATED.
[2019-05-25 12:00] VITALS: BP 136/79
--- NOTE | 2019-05-25 12:33 | NUR ---
INFORMED PT THAT HE WILL BE DC TODAY. PER PT, HE HAS NO WHERE TO GO. HE HAS A DAUGHTER, BUT DOESN'T REMEMBER HER PHONE NUMBER. HE WANTS TO ASK HIS FRIEND JAQUELIN TO PICK HIM UP. CALLED JAQUELIN 2X AND NO ANSWER; VOICE MAILBOX IS FULL AND UNABLE TO LEAVE A MESSAGE. WILL NOTIFY SS FOR HOMELESS RESOURCES.
--- NOTE | 2019-05-25 13:36 | NUR ---
PT IS AWAKE LYING BED NOT IN DISTRESS. DENIES PAIN SAFETY MEASURES IN PLACE AND CALL LIGHT WITHIN REACH.WILL CONTINUE TO MONITOR.
--- NOTE | 2019-05-25 13:50 | NUR ---
TSA SCREENER SPOKE TO PT AND PROVIDED PT WITH LIST OF HALFWAY. PER PT, HE WILL GO TO ONE OF THE HALFWAY OF HIS CHOICE. PT REQUESTED FOR BUS PASS AND SOME CLOTHES, CALLED THEOLOGY TEACHER FOR BUS PASS AND PAGED SECURITY FOR CLOTHES. AWAITING FOR SECURITY TO CALL BACK. PT AWAKE AND RESTING ON BED AT THIS TIME. NO SIGNS OF DISTRESS NOTED. TELE MONITOR ATTACHED. SAFETY MEASURES IN PLACE.
--- NOTE | 2019-05-25 14:20 | NUR ---
SECURITY BROUGHT PT SOME CLOTHES AND PT IS CHANGING INTO STREET CLOTHES AT THIS TIME. BUS PASS PROVIDED TO PT. NO SIGNS OF DISTRESS NOTED.
--- NOTE | 2019-05-25 15:11 | NUR ---
DISCHARGE INSTRUCTION PROVIDED TO PT AT BEDSIDE. EDUCATED PT TO FOLLOW UP WITH MD AFTER DC, DISEASE MANAGEMENT, MEDICATION REGIMENS, SIDE EFFECTS, AND SEEK MEDICAL HELP IN CASE OF MEDICAL EMERGENCY. ANSWERED ALL PT'S QUESTIONS AND PT SAID OK. PRESCRIPTION AND DISCHARGE PACKET PROVIDED TO PT. REMOVED ALL ID BANDS AND IV, IV INTACT AND COMPLETED. NO BLEEDING ON IV SITE. PT IS CHANGED INTO STREET CLOTHES. RETURNED TELE MONITOR TO MOTION DESIGNER. PT IS UP TO DATE WITH VACCINATIONS. PT TOOK ALL HIS BELONGINGS. SUPERVISING LIBRARIAN ESCORTED PT TO FRONT LOBBY. PT IS GOING TO DC. PER PT, HE WILL SELECT THE [facility] ON THE LIST PROVIDED, BUT UNSURE WHICH ONE FOR NOW. PT IS IN STABLE CONDITION.
== END 2019-05-25 15:10 | disposition home or self-care (01) | DRG 190 ==
LOC: MED 15:30 → MMU 18:19
PROVIDERS: ADMIT Internal Medicine Pulmonary Disease; ATTEND Internal Medicine Pulmonary Disease
DX: I21.A1 Myocardial infarction type 2 (principal); R65.10 Systemic inflammatory response syndrome (SIRS) of non-infectious origin without acute organ dysfunction; J44.1 Chronic obstructive pulmonary disease with (acute) exacerbation; E86.0 Dehydration; L03.116 Cellulitis of left lower limb; I11.9 Hypertensive heart disease without heart failure; J45.901 Unspecified asthma with (acute) exacerbation; E86.9 Volume depletion, unspecified; R09.02 Hypoxemia; F17.210 Nicotine dependence, cigarettes, uncomplicated; I44.7 Left bundle-branch block, unspecified; Z79.899 Other long term (current) drug therapy
CPT/HCPCS: 36415; 71045; 80048; 80053; 80202; 81003; 83605; 83735; 83880; 84100; 84484; 85025; 85610; 85730; 87040; 87081; 93005; 93970; 94640; 96361; 96374; 97110; 97112; 97116; 97161-GP; 97530; 99285; J0696; J1644; J1940; J2270; J2920; J3370; J3475; J3490; J7030; J7060; J7612; J7613; J7626; J7644; Q0092